=== PATIENT | male | born 1985 | race Caucasian/White ===

== ENCOUNTER → 2017-06-14 | Outpatient (CLI) | payer OTHER ==
[~2017-06-14] MED LIST: ALBU90OI; ALBU90OI INH; ALBU90OI61 INH; Ativan1 MG SL; CHLO25 PO; ERYT500 PO; HYDACE5 PO; NAPR500 PO; OXYACE5T PO; Omeprazole20 M1 PO; PROM25 PO; Prednisone20 MG PO; RXCLIN PO; RXERYTOPTH OP; SUBOXONE 8 MG-1 EACH SL; [UNRECOGNIZED DRUG - CODE] OS
== END | disposition home or self-care (01) ==
LOC: LAB SHORT 08:00 → LAB 08:00
DX: F10.10 Alcohol abuse, uncomplicated (principal)

== ENCOUNTER 2019-05-02 00:24 | Emergency (ER) | payer SELFPAY ==
[~2019-05-02] VITALS: Ht 177.8 cm; Wt 104.3 kg
[~2019-05-02 00:24] MED LIST changes: +Bactrim 400-801 EACH PO
[2019-05-02] MEDS ORDERED: BUPRENORPHIN-N1 EACH SL (01:45)
== END 2019-05-02 02:25 | disposition home or self-care (01) ==
LOC: ER 00:24
DX: S05.01XA Injury of conjunctiva and corneal abrasion without foreign body, right eye, initial encounter (principal); T20.29XA Burn of second degree of multiple sites of head, face, and neck, initial encounter; J45.909 Unspecified asthma, uncomplicated; F17.210 Nicotine dependence, cigarettes, uncomplicated; Z88.0 Allergy status to penicillin; X30.XXXA Exposure to excessive natural heat, initial encounter
CPT/HCPCS: 99283

== ENCOUNTER 2021-02-03 23:58 | Emergency (ER) | payer SELFPAY ==
[~2021-02-03] VITALS: Ht 175.3 cm; Wt 90.7 kg
[~2021-02-03 23:58] MED LIST changes: +BUPRENORPHIN-N1 EACH SL
== END 2021-02-04 01:50 | disposition left against medical advice (07) ==
LOC: ER 23:58
DX: Z53.21 Procedure and treatment not carried out due to patient leaving prior to being seen by health care provider (principal)